=== PATIENT | female | born 1955 | race Hispanic/Latino ===

== ENCOUNTER 2020-04-13 06:04 | Observation (INO) | payer OTHER, MEDICARE ==
[2020-04-11 12:16] VITALS: BP 129/60; PULSE 74; RESP 16; TEMP 97.2
[2020-04-13] VITALS (17 sets, daily range): BP systolic 97–147; BP diastolic 47–61; PULSE 63–80; RESP 16–20; TEMP 97.2–98.7
[~2020-04-13] VITALS: Ht 165.1 cm; Wt 80.7 kg
[2020-04-13] MEDS ORDERED: SODIUM CHLORIDE 0.9% 1000ML 1,000 ML IV SCH ×2 (08:00→11:56)
[2020-04-13] MEDS ORDERED: NITROGLYCERIN 2 MG/VIAL VIAL IV ONE (09:55)
[2020-04-13] MEDS ORDERED: MIDAZOLAM HCL 1 MG/ML 2ML VIAL ONE ×3 (09:55→10:44)
[2020-04-13] MEDS ORDERED: HEPARIN SODIUM 1000UNIT/ML 10ML VIAL ONE (09:55)
[2020-04-13] MEDS ORDERED: SODIUM BICARB 50MEQ 50ML VIAL ONE (09:55)
[2020-04-13] MEDS ORDERED: MEPERIDINE-PF 25 MG/ML SYG ONE ×3 (09:55→10:44)
[2020-04-13] MEDS ORDERED: LIDOCAINE HCL 2% 20ML ONE (09:55)
[2020-04-13] MEDS ORDERED: IODIXANOL 320 MG/ML 100 ML VIAL ONE (09:55)
--- NOTE | 2020-04-13 12:58 | NUR ---
PT POST AORTIC STENT PLACEMENT-NO HEMATOMA OR BLEEDING TO RT GROIN SITE. TO BE ADMITTED OBS PCCU OVERNIGHT FOR [facility] PER DR MEZA. TURNER AND FORMER [employer], REGISTRATION AWARE. I HAVE ALSO PAGED MEGAN ALEJANDRO OIL AND GAS LEASE PUMPER COMPLIANCE DIRECTOR FOR [facility] TO NOTIFY HER OF ADMIT. THANK YOU
--- NOTE | 2020-04-13 13:19 | NUR ---
SECOND PAGE FOR MEGAN COSMEP
--- NOTE | 2020-04-13 13:42 | NUR ---
MEGAN ALEJANDRO B[employer] VAULT CUSTODIAN HERE TO SEE PATIENT
--- NOTE | 2020-04-13 13:53 | NUR ---
HAND OFF REPORT GIVEN TO MONICA CUMMINGS .... PT TRANSFERRED TO RM [id number]. FAMILY MADE AWARE
[2020-04-13] MEDS ORDERED: DEXTROSE 50%-WATER 50 ML DISP.SYRIN IV ONE (15:25)
[2020-04-13] MEDS ORDERED: ACETAMINOPHEN-CODEINE 300/30MG TAB PO PRN ×2 (18:15)
[2020-04-13] MEDS ORDERED: ACETAMINOPHEN 325 MG TAB PO PRN (18:15)
[2020-04-13] MEDS ORDERED: KETOROLAC TROMETHAMINE 15MG/ML IM SCH (19:30)
[2020-04-13] MEDS ORDERED: ATORVASTATIN CALCIUM 40 MG TABLET PO SCH (21:00)
--- NOTE | 2020-04-14 | NUR ---
PATIENT A/O X3. C/O BACK ACHE DURING SHIFT CHANGE DUE TO ORDERED BR POST STENT PLACEMENT. MEDICATED WITH ORDERED PAIN MED. R GROIN SOFT, NON TENDER. PRESSURE DRESSING IN PLACE. SAT PATIENT UP TO 45 DEGREES. WILL AMBULATE AT 0500. PATIENT WANTED TO SLEEP. WILL CONTINUE TO MONITOR SITE.
[2020-04-14 03:00] VITALS: BP 109/52; PULSE 68; RESP 20; TEMP 98
--- NOTE | 2020-04-14 05:00 | NUR ---
R GROIN ASSESSMENT PRESSURE DRESSING REMOVED FROM RIGHT GROIN. NO HEMATOMA. SITE OOZING. PRESSURE APPLIED 15 MIN. DRESSING CHANGED AND PRESSURE DRESSING APPLIED. PEDAL PULSES INTACT.
[2020-04-14 07:58] VITALS: BP 105/51; PULSE 75; RESP 18; TEMP 97.5
[2020-04-14] MEDS ORDERED: INSULIN DEGLUDEC 50 UNIT SQ SCH (09:00)
[2020-04-14] MEDS ORDERED: PRASUGREL HCL 10 MG TABLET PO SCH (09:00)
[2020-04-14] MEDS ORDERED: LISINOPRIL 2.5 MG TABLET PO SCH (09:00)
[2020-04-14] MEDS ORDERED: ASPIRIN 81 MG EC TAB PO SCH (09:00)
[2020-04-14] MEDS ORDERED: EZETIMIBE 10 MG TAB PO SCH (09:00)
[2020-04-14 11:34] VITALS: BP 120/55; PULSE 80; RESP 18; TEMP 97.5
--- NOTE | 2020-04-14 14:17 | NUR ---
Patient discharged at this time. NO c/o pain, chest pain, back pain, n/v/d, SOB reported. Cath site clean and dry. No hematoma present, are soft, peripheral pulses palpable to bilateral dorsalis pedis. Patient verbalized understanding of discharge instructions and has agreed to follow up with Dr Briscoe at appointed date. Patient escorted via wheelchair to private vehicle.
[2020-04-15] MEDS ORDERED: OZEMPIC 2.5 MG SQ SCH (09:00)
== END 2020-04-14 14:41 | disposition home or self-care, planned readmission (81) ==
LOC: DAH 06:04 → DAHIP 06:05 → DAH 06:05 → 4CH 14:43
PROVIDERS: ADMIT Internal Medicine Pulmonary Disease; ATTEND Internal Medicine Pulmonary Disease
DX: I71.4 Abdominal aortic aneurysm, without rupture (principal); I10 Essential (primary) hypertension; E78.5 Hyperlipidemia, unspecified; E11.9 Type 2 diabetes mellitus without complications; E66.9 Obesity, unspecified; I70.8 Atherosclerosis of other arteries; I25.10 Atherosclerotic heart disease of native coronary artery without angina pectoris; N28.9 Disorder of kidney and ureter, unspecified; I65.29 Occlusion and stenosis of unspecified carotid artery; Z98.61 Coronary angioplasty status
CPT/HCPCS: 36200; 36415 ×2; 37236; 71045; 75625; 80048; 81003; 82948 ×9; 85025; 85347 ×2; 85610; 85730; 93005; A4215; A4216; A4221; A4222; A4223 ×3; A4606; A4663; C1725 ×3; C1760 ×2; C1769 ×2; C1876; C1894 ×3; G0378 ×19; J1644 ×3; J2175 ×3; J2250 ×3; J3490 ×3; J7030; J7070; Q9967

== ENCOUNTER → 2020-05-23 | Outpatient (CLI) | payer OTHER, MEDICARE ==
[~2020-05-23] MED LIST: ASPI-556 PO; ATOR40TA71 PO; EZET10TA48 PO; INSU200I4 SQ; LISI2.5T2 PO; OZEMPIC SQ; PRAS10TA9 PO
== END | disposition home or self-care (01) ==
LOC: SHCH 10:08
PROVIDERS: ATTEND Internal Medicine Cardiovascular Disease
DX: I73.9 Peripheral vascular disease, unspecified (principal)
CPT/HCPCS: 93925; 93978

== ENCOUNTER → 2020-06-14 | Outpatient (CLI) | payer OTHER, MEDICARE | END | disposition home or self-care (01) | LOC: OIH 06-11 13:39 | PROVIDERS: ATTEND Internal Medicine Cardiovascular Disease | DX: M16.11 Unilateral primary osteoarthritis, right hip (principal); M85.88 Other specified disorders of bone density and structure, other site; M47.819 Spondylosis without myelopathy or radiculopathy, site unspecified | CPT/HCPCS: 73502 ==

== ENCOUNTER → 2020-10-30 | Outpatient (CLI) | payer OTHER, MEDICARE ==
[~2020-10-30] MED LIST changes: +REGADENOSON 0.4 MG/5 ML PF SYG IVP SCH
== END | disposition home or self-care (01) ==
LOC: RAH 08:54
PROVIDERS: ATTEND Internal Medicine Cardiovascular Disease
DX: I70.0 Atherosclerosis of aorta (principal); R06.02 Shortness of breath; I10 Essential (primary) hypertension
CPT/HCPCS: 71046; 78452; 93017; 96374; A9500 ×2; J2785

== ENCOUNTER → 2020-11-29 | Outpatient (CLI) | payer OTHER, MEDICARE ==
[~2020-11-29] MED LIST changes: -REGADENOSON 0.4 MG/5 ML PF SYG IVP SCH
== END | disposition home or self-care (01) ==
LOC: SHCH 14:38
PROVIDERS: ATTEND Internal Medicine Cardiovascular Disease
DX: R01.1 Cardiac murmur, unspecified (principal); I65.23 Occlusion and stenosis of bilateral carotid arteries
CPT/HCPCS: 93306; 93356; 93880